=== PATIENT | female | born 1940 | race Caucasian/White ===

== ENCOUNTER 2017-04-11 08:00 | Outpatient (CLI) | payer MEDICARE, OTHER | END 2017-04-11 08:01 | disposition home or self-care (01) | LOC: LAB.WCP 08:00 | PROVIDERS: ATTEND Family Medicine | DX: N39.0 Urinary tract infection, site not specified (principal) | CPT/HCPCS: 87077; 87086 ==

== ENCOUNTER 2018-02-10 10:09 | Emergency (ER) | payer MEDICARE, OTHER ==
[2018-02-10] MEDS ORDERED: DEXAMETHASONE 10 MG/ML VIAL PO STA (10:49)
--- NOTE | 2018-02-10 11:37 | ED Physician Documentation ---
History of Present Illness - Stated complaint Stated Complaint: ARM PX - Chief complaint Chief Complaint: Ext Problem - Additonal information Additional information: hx from pt 77 f 25 years post surgery and hardware for elbow fx hardware long since removed 4 days of pain from elbow to fingertips with swelling to wrist and hand, most notable to anterior wrist pain is severe and radiates to her fingertips 2-4 no open wounds has a manicure but got it sat after the sx began no dental work surgery IV IM meds drugs etc no new injury Review of Systems Constitutional: denies: Fever Cardiac: denies: Chest pain / pressure Respiratory: denies: Dyspnea Musculoskeletal: reports: Extremity pain, Extremity swelling Endocrine: denies: Easy bruising / bleeding Immunocompromised: denies: Immunocompromised PD PAST MEDICAL HISTORY - Past Medical History Past Medical History: Yes Cardiovascular: Arrhythmia Respiratory: None Endocrine/Autoimmune: None GI: None : None Psych: None Musculoskeletal: Osteoarthritis Derm: None - Past Surgical History Past Surgical History: Yes General: Colonoscopy Ortho: Hip replacement - Present Medications Home Medications: Ambulatory Orders Medication Instructions Recorded Confirmed Metoprolol Succinate 12.5 mg PO DAILY 12/31/12 02/10/18 Aspirin 81 mg PO DAILY 01/01/13 02/10/18 Atorvastatin [Lipitor] 10 mg PO DAILY 02/10/18 02/10/18 Indomethacin [Indocin] 25 mg PO TIDWM PRN #30 capsule 02/10/18 - Allergies Allergies/Adverse Reactions: Allergies Allergy/AdvReac Type Severity Reaction Status Date / Time oxycodone HCl * Allergy Severe Rash Verified 12/04/13 20:21 [From OxyContin] morphine AdvReac Intermediate Emesis Verified 12/04/13 20:21 - Social History Does the pt smoke?: No Smoking Status: Never smoker Does the pt have substance abuse?: No - Immunizations Immunizations are current?: Yes - POLST Patient has POLST: No PD ED PE NORMAL - Vitals Vital signs reviewed: Yes - Neck Neck: Supple, no meningeal sign - Cardiac Cardiac: RRR - Respiratory Respiratory: No respiratory distress, Clear bilaterally - Extremities Extremities: Other (RUE: shoulder full ROM, elbow full ROM s pain no erythema or warmth, mild swelling, FA mild swelling, wrist moderate swelling anterior, slight erythema, not warm, able to range s pain, hand quite swollen, able to move but limited by edema, 3rd PIP swollen and unable to extend but can flex, MSV intact, no open wounds, + cap refill radial and ulnar pulses ) - Neuro Neuro: No motor deficit, No sensory deficit Results - Vitals Vitals: Vital Signs - 24 hr 02/10/18 10:15 Heart Rate 69 Respiratory 14 Rate Blood Pressure 159/77 H O2 Saturation 100 Oxygen O2 Source Room air - Rads (name of study) elbow Radiology: See rad report (neg) wrist Radiology: See rad report (seg degen changes and ST calcification) venous duplex Radiology: See rad report (no DVT, anterior wrist fluid collection could be a ganglion cyst) PD MEDICAL DECISION MAKING - ED course ED course: pain in median nerve distribution, aggrevated by supinating and extending elbow, swelling primarily to volar wrist and hand, less so to FA and not really notable to upper arm, + pulses, no DVT on duplex, xrays show degen changes and ST calcifications in wrist etiology unclear but hx exam and work up have effectively ruled out septic joint and DVT does have some arthritic changes and a likely ganglion cyst to wrist, that could cause median nerve compression, but not sure why hand and PIP would be affected, gout is another possibility amparo and pt relates pain is at times very severe will provide splint for comfort NSAID and refer to ortho - Sepsis Event Vital Signs: Vital Signs - 24 hr 02/10/18 10:15 Heart Rate 69 Respiratory 14 Rate Blood Pressure 159/77 H O2 Saturation 100 Oxygen O2 Source Room air Departure - Departure Disposition: 01 Home, Self Care Clinical Impression: Right wrist effusion Condition: Good Follow-Up: Velasquez Marshall MD [Primary Care Provider] - [facility] [Provider Group] Prescriptions: Indomethacin [Indocin] 25 mg PO TIDWM PRN #30 capsule PRN Reason: Pain Comments: The xray of the elbow is fine The wrist xray shows degenerative changes and calcifications in the soft tissues The ultrasound does not show a blood clot but does show a fluid collection off the wrist joint suggesting an outpouching of the joint capsule called a ganglion cyst The inflammation and fluid collection are likely inflammatory The exam does not suggest an infection The calcifications and swollen finger joint suggest you could have gout and should follow up with your PMD and/or orthopedics for more definitive testing But for today you can go home with a brace to support your wrist, indocin to decrease inflammation (especially good for gout) as well as a stronger narcotic medication called vicodin that you should only take if the pain is very very severe and not relieved with the indocin and ice and the splint Forms: Activity restrictions Discharge Date/Time: 02/10/18 14:09
--- NOTE | 2018-02-10 11:47 | XRAY Report ---
Reason: wrsit pain swell Procedure Date: 02/10/2018 Accession Number: [id number] / [id number] Procedure: XR - Wrist 4 View RT CPT Code: FULL RESULT: EXAM: RIGHT WRIST RADIOGRAPHY EXAM DATE: 02/10/2018 11:07 AM. CLINICAL HISTORY: Wrist pain and swelling. COMPARISON: None. TECHNIQUE: 4 views. FINDINGS: Bones are qualitatively osteopenic. There are degenerative changes within the carpal joints which are most pronounced in the triscaphe distribution. Advanced degenerative changes are also seen at the first carpometacarpal joint. Soft tissue calcifications are seen on the ulnar side of the wrist joint. No acute fracture or dislocation is identified. Joint space loss is also seen at the visualized metacarpophalangeal joints. IMPRESSION: Degenerative changes of the wrist as well as visualized metacarpophalangeal joints. RADIA
--- NOTE | 2018-02-10 11:48 | XRAY Report ---
Reason: elbow pain arm swelling Procedure Date: 02/10/2018 Accession Number: [id number] / [id number] Procedure: XR - Elbow 3 View RT CPT Code: FULL RESULT: EXAM: RIGHT ELBOW RADIOGRAPHY EXAM DATE: 02/10/2018 11:09 AM. CLINICAL HISTORY: Elbow pain arm swelling. COMPARISON: None. TECHNIQUE: 3 views. FINDINGS: No acute fracture or dislocation is identified. There is no significant joint effusion. Spur formation at the olecranon is noted with soft tissue thickening, likely chronic finding. IMPRESSION: No acute fracture or dislocation. RADIA
[2018-02-10 12:57] VITALS: BP 154/82
--- NOTE | 2018-02-10 13:06 | Ultrasound Report ---
Reason: R arm swelling Procedure Date: 02/10/2018 Accession Number: [id number] / [id number] Procedure: US - Duplex Ext Veins Right CPT Code: FULL RESULT: EXAM: RIGHT LOWER EXTREMITY VENOUS ULTRASOUND EXAM DATE: 02/10/2018 12:45 PM. CLINICAL HISTORY: R arm swelling and pain. COMPARISON: None. TECHNIQUE: Real-time sonographic vascular imaging was performed by the party plan salesperson through the lower extremity utilizing both color-flow and Doppler spectral analysis. Multiple sales representative canvas products static images were saved for review. FINDINGS: Common Femoral Vein (CFV): Normal. CFV-GSV Junction: Normal. Profunda Femoral Vein (PFV): Normal. Femoral Vein (FV) Prox: Normal. Femoral Vein (FV) Mid: Normal. Femoral Vein (FV) Dist: Normal. Popliteal Vein: Normal. Posterior Tibial Veins: Normal. Peroneal Veins: Normal. Contralateral Side CFV: Normal. Other: 3.1 x 2.3 x 1.0 cm anterior right wrist fluid collection associated with flexor tendons. IMPRESSION: 1. No evidence for deep venous thrombosis. 2. 3.1 x 2.3 x 1.0 cm fluid collection at the anterior wrist associated with flexor tendons which may reflect a ganglion. MRI could be used to further assess as clinically indicated. RADIA
== END 2018-02-10 14:09 | disposition home or self-care (01) ==
LOC: ED 10:09
DX: M25.431 Effusion, right wrist (principal); Z98.890 Other specified postprocedural states; Z79.82 Long term (current) use of aspirin; Z96.649 Presence of unspecified artificial hip joint
CPT/HCPCS: 99283

== ENCOUNTER 2018-03-03 09:22 | Outpatient (CLI) | payer MEDICARE, OTHER ==
[2018-03-03 12:32] LABS: BASOPHILS # (AUTO) 0.1 10^3/uL (0.0-0.1); BASOPHILS % (AUTO) 2.1 %; EOSINOPHILS # (AUTO) 0.2 10^3/uL (0.0-0.7); EOSINOPHILS % (AUTO) 5.8 %; HGB - HEMOGLOBIN 12.3 g/dL (12.0-16.0); LYMPHOCYTES # (AUTO) 1.1 10^3/uL (1.5-3.5); LYMPHOCYTES % (AUTO) 25.7 %; MEAN CORPUSCULAR HEMOGLOBIN 30.3 pg (27.0-31.0); MEAN CORPUSCULAR HGB CONC 34.2 g/dL (32.0-36.0); MEAN CORPUSCULAR VOLUME 88.7 fL (81.0-99.0); MEAN PLATELET VOLUME 8.3 fL (7.9-10.8); MONOCYTES # (AUTO) 0.4 10^3/uL (0.0-1.0); MONOCYTES % (AUTO) 9.4 %; NEUTROPHILS # (AUTO) 2.4 10^3/uL (1.5-6.6); PLT - PLATELET COUNT 349 10^3/uL (130-450); RED BLOOD COUNT 4.07 10^6/uL (4.20-5.40); RED CELL DISTRIBUTION WIDTH 13.3 % (12.0-15.0); WHITE BLOOD COUNT 4.3 x10^3/uL (4.8-10.8)
[2018-03-03 12:40] LABS: ALBUMIN 3.6 g/dL (3.2-5.5); ALBUMIN/GLOBULIN RATIO 1.2 (1.0-2.2); ALKALINE PHOSPHATASE 85 IU/L (42-121); ALT ALANINE AMINOTRANSFERASE 15 IU/L (10-60); AST ASPARTATE AMINOTRANSFERASE 19 IU/L (10-42); BILIRUBIN,TOTAL 1.1 mg/dL (0.2-1.0); BUN - BLOOD UREA NITROGEN 17 mg/dL (6-20); CALCIUM 9.1 mg/dL (8.5-10.3); CARBON DIOXIDE - CO2 26 mmol/L (21-32); CHLORIDE 103 mmol/L (101-111); CHOL/HDL RATIO 2.2 (<4.4); CHOLESTEROL 166 mg/dL; CREATININE 0.6 mg/dL (0.4-1.0); GFR - MDRD 97 (>89); GLUCOSE 100 mg/dL (70-100); HDL CHOLESTEROL 77 mg/dL; LDL CHOLESTEROL,CALCULATED 77 mg/dL; SODIUM 137 mmol/L (135-145); TOTAL PROTEIN 6.7 g/dL (6.7-8.2); VLDL CHOLESTEROL 12 mg/dL
== END 2018-03-03 09:23 | disposition home or self-care (01) ==
LOC: LAB.WCP 09:22
PROVIDERS: ATTEND Family Medicine
DX: E78.5 Hyperlipidemia, unspecified (principal)
CPT/HCPCS: 36415; 80053; 80061; 83721; 84443; 85025

== ENCOUNTER 2018-03-13 16:36 | Outpatient (CLI) | payer MEDICARE, OTHER ==
[2018-03-13 18:59] LABS: BILIRUBIN,URINE NEGATIVE (NEGATIVE); GLUCOSE, URINE (UA) NEGATIVE (NEGATIVE); KETONES,URINE (UA) NEGATIVE (NEGATIVE); LEUKOCYTE ESTERASE, URINE TRACE (NEGATIVE); NITRITE,URINE NEGATIVE (NEGATIVE); OCCULT BLOOD,URINE TRACE-LYSE (NEGATIVE); PH,URINE 5.5 PH (5.0-7.5); PROTEIN,URINE NEGATIVE (NEGATIVE); UROBILINOGEN,URINE 0.2 (NORMAL) E.U./dL (NORMAL)
[2018-03-13 19:22] LABS: CLARITY,URINE CLEAR (CLEAR)
[2018-03-13 19:23] LABS: BACTERIA,URINE None Seen /HPF (None Seen); CRYSTALS,URINE >50 Calcium Oxalate /LPF; SQUAMOUS EPITHELIAL CELL,UR RARE Squamous (<= Few)
== END 2018-03-13 16:37 | disposition home or self-care (01) ==
LOC: LAB.R 16:36
PROVIDERS: ATTEND Family Medicine
DX: R30.0 Dysuria (principal)
CPT/HCPCS: 81001; 87086

== ENCOUNTER 2018-04-22 09:33 | Outpatient (CLI) | payer MEDICARE, OTHER ==
--- NOTE | 2018-04-23 08:59 | Mammography Report ---
Reason: SCREENING MAMMO Procedure Date: 04/22/2018 Accession Number: [id number] / [id number] Procedure: HUBER - Screening Mammo Impl w/Jd CPT Code: FULL RESULT: EXAM: Screening Mammo Impl w/Jd DATE: 04/22/2018 10:07 AM CLINICAL HISTORY: Screening. Family history breast cancer sister age 55 father age 68 greater than age unknown. Prior history of augmentation with revisions 6 and 4 years ago. TECHNIQUE: Bilateral CC and MLO views were obtained. COMPARISON: 03/11/2017 through 10/13/2010 FINDINGS: The breasts demonstrate scattered fibroglandular densities bilaterally. Right breast: There is a subpectoral silicone implant with smooth contour. There are stable focal areas of free silicone in the inferior medial breast and superior to the implant, consistent with prior implant rupture since revised. The presence of the implant limits mammography. No suspicious masses, calcifications or areas of distortion. Left breast: There is mild asymmetric nipple retraction which appears new. Patient also notes a history of nipple retraction on her history sheet. There is an intact subpectoral silicone implant with smooth margins. Presence of the implant limits sensitivity of mammography. There are no suspicious masses, calcifications or areas of distortion. IMPRESSION: Incomplete examination RECOMMENDATION: Additional views of left breast with ultrasound for new nipple retraction. BI-RADS CATEGORY 0: Incomplete examination STANDARD QUALIFYING STATEMENTS: 1. This examination was not reviewed with the aid of Computer-Aided Detection (CAD). 2. A negative or benign imaging report should not preclude biopsy if clinically suspicious findings are present. 3. Dense breasts may obscure an underlying neoplasm. 4. This examination was reviewed with the aid of 3D breast imaging (tomosynthesis).
== END 2018-04-22 09:34 | disposition home or self-care (01) ==
LOC: DI 09:33
DX: Z12.31 Encounter for screening mammogram for malignant neoplasm of breast (principal); Z80.3 Family history of malignant neoplasm of breast
CPT/HCPCS: 77063; 77067

== ENCOUNTER 2018-05-12 10:54 | Outpatient (CLI) | payer MEDICARE, OTHER ==
--- NOTE | 2018-05-14 11:08 | Mammography Report ---
Reason: ABN MAMMO Procedure Date: 05/12/2018 Accession Number: [id number] / [id number] Procedure: HUBER - Diag Special Views Dig LT CPT Code: FULL RESULT: EXAM: Diag Special Views Dig LT DATE: 05/12/2018 11:58 AM CLINICAL HISTORY: Diagnostic mammogram. Workup is of new mild asymmetric nipple retraction TECHNIQUE: Left CC, MLO and ML views are obtained in implant displaced and nondisplaced technique. COMPARISON: 04/22/2018 through 10/13/2010. Comparison to the focused left breast ultrasound dated 05/14/2018 is also made to render the interpretation and recommendations. FINDINGS: The left breast demonstrates scattered fibroglandular densities. Mild nipple retraction persists and is confirmed. No suspicious masses, calcifications or areas of distortion are identified. The breast implant is unchanged. IMPRESSION: Benign findings RECOMMENDATION: Recommend routine annual Screening mammography unless otherwise clinically indicated. BIRADS CATEGORY 2: Benign findings STANDARD QUALIFYING STATEMENTS: 1. This examination was not reviewed with the aid of Computer-Aided Detection (CAD). 2. A negative or benign imaging report should not delay biopsy if clinically suspicious findings are present. Consider surgical consultation if warrented. More than 5% of cancers are not identified by imaging. 3. Dense breasts may obscure an underlying neoplasm. 4. This examination was reviewed with the aid of 3D imaging (tomography).
== END 2018-05-12 10:55 | disposition home or self-care (01) ==
LOC: DI 10:54
PROVIDERS: ATTEND Family Medicine
DX: N64.53 Retraction of nipple (principal)

== ENCOUNTER 2018-05-14 08:11 | Outpatient (CLI) | payer MEDICARE, OTHER ==
--- NOTE | 2018-05-14 09:55 | Ultrasound Report ---
Reason: F/U TO ABN MAMMO, LT BR ASYMMETRIC NIPPLE RETRACTI Procedure Date: 05/14/2018 Accession Number: [id number] / [id number] Procedure: US - Breast Unilateral Limited CPT Code: FULL RESULT: EXAM: Breast Unilateral Limited DATE: 05/14/2018 9:00 AM CLINICAL HISTORY: Diagnostic ultrasound as a result of screening mammogram finding nipple retraction. COMPARISON: Screening mammogram 04/22/2018. TECHNIQUE: Focused breast ultrasound of the left breast in the retroareolar region was performed with limited color Doppler as needed. FINDINGS: Normal breast tissue and architecture with no suspicious mass or distortion is identified. The retracted nipple is seen on ultrasound with no asymmetry or tethering/interaction with the underlying retroareolar breast tissue. IMPRESSION: Benign findings. BI-RADS category: 2 Recommendation: Annual screening mammography unless otherwise clinically indicated. RADIA
== END 2018-05-14 08:12 | disposition home or self-care (01) ==
LOC: DI 08:11
PROVIDERS: ATTEND Family Medicine
DX: N64.53 Retraction of nipple (principal)
CPT/HCPCS: 76642

== ENCOUNTER 2018-07-07 13:18 | Outpatient (CLI) | payer MEDICARE, OTHER ==
[2018-07-07 19:53] LABS: CREATININE 1.2 mg/dL (0.4-1.0)
[2018-07-07 20:07] LABS: BASOPHILS # (AUTO) 0.1 10^3/uL (0.0-0.1); BASOPHILS % (AUTO) 1.2 %; CALCIUM 9.2 mg/dL (8.5-10.3); EOSINOPHILS # (AUTO) 0.1 10^3/uL (0.0-0.7); EOSINOPHILS % (AUTO) 2.8 %; HGB - HEMOGLOBIN 12.6 g/dL (12.0-16.0); LYMPHOCYTES # (AUTO) 1.2 10^3/uL (1.5-3.5); LYMPHOCYTES % (AUTO) 22.5 %; MEAN CORPUSCULAR HEMOGLOBIN 29.1 pg (27.0-31.0); MEAN CORPUSCULAR VOLUME 88.1 fL (81.0-99.0); MEAN PLATELET VOLUME 8.7 fL (7.9-10.8); MONOCYTES # (AUTO) 0.4 10^3/uL (0.0-1.0); MONOCYTES % (AUTO) 6.8 %; NEUTROPHILS # (AUTO) 3.5 10^3/uL (1.5-6.6); NEUTROPHILS % (AUTO) 66.7 %; PLT - PLATELET COUNT 285 10^3/uL (130-450); RED BLOOD COUNT 4.33 10^6/uL (4.20-5.40); RED CELL DISTRIBUTION WIDTH 14.4 % (12.0-15.0); WHITE BLOOD COUNT 5.2 x10^3/uL (4.8-10.8)
== END 2018-07-07 23:59 | disposition home or self-care (01) ==
LOC: LAB.N 13:18
PROVIDERS: ATTEND Internal Medicine Cardiovascular Disease
DX: R94.39 Abnormal result of other cardiovascular function study (principal)
CPT/HCPCS: 36415; 80048; 85025

== ENCOUNTER 2019-03-06 08:00 | Outpatient (CLI) | payer MEDICARE, OTHER ==
[2019-03-06 20:20] LABS: CALCIUM 9.6 mg/dL (8.5-10.3); CREATININE 0.8 mg/dL (0.4-1.0)
== END 2019-03-06 23:59 | disposition home or self-care (01) ==
LOC: LAB.WCP 08:00
PROVIDERS: ATTEND Internal Medicine Cardiovascular Disease
DX: I10 Essential (primary) hypertension (principal); R00.2 Palpitations
CPT/HCPCS: 36415; 80048

== ENCOUNTER 2019-10-26 11:28 | Emergency (ER) | payer MEDICARE, OTHER ==
--- NOTE | 2019-10-26 13:33 | ED Physician Documentation ---
PD HPI SKIN - Stated complaint Stated Complaint: HEAD PAIN - Chief complaint Chief Complaint: General - History obtained from History obtained from: Patient - History of Present Illness Timing - onset: How many days ago (10) Timing - duration: Days (10) Timing - details: Abrupt onset, Still present Location: Scalp, Other (no noted injury to the area. Onset after being outside, but not aware of bite per se.) Quality / character: Painful (mildly tender), Raised. No: Draining Associated symptoms: No: Fever, Myalgias Contributing factors: No: Insect bite /sting (she noted it at first when outdoors in yard, but not aware of injury nor insect bite. Onset of the swelling seemed quick the first day, and has just persisted through now. No drainage. Mild redness.), Recent illness Similar symptoms before: Has not had sx before Review of Systems Constitutional: reports: Myalgias. denies: Fever, Chills Nose: denies: Rhinorrhea / runny nose, Congestion Throat: denies: Sore throat Respiratory: denies: Cough GI: denies: Nausea, Vomiting, Diarrhea Neurologic: denies: Near syncope, Confused, Altered mental status, Headache PD PAST MEDICAL HISTORY - Past Medical History Cardiovascular: Arrhythmia Respiratory: None Endocrine/Autoimmune: None GI: None : None Psych: None Musculoskeletal: Osteoarthritis Derm: None - Past Surgical History Past Surgical History: Yes General: Colonoscopy Ortho: Hip replacement - Present Medications Home Medications: Ambulatory Orders Medication Instructions Recorded Confirmed Metoprolol Succinate 12.5 mg PO DAILY 12/31/12 02/10/18 Aspirin 81 mg PO DAILY 01/01/13 02/10/18 Atorvastatin [Lipitor] 10 mg PO DAILY 02/10/18 02/10/18 Indomethacin [Indocin] 25 mg PO TIDWM PRN #30 capsule 02/10/18 Doxycycline Monohydrate 100 mg PO BID #14 tablet 10/26/19 - Allergies Allergies/Adverse Reactions: Allergies Allergy/AdvReac Type Severity Reaction Status Date / Time oxycodone HCl * Allergy Severe Rash Verified 10/26/19 11:45 [From OxyContin] morphine AdvReac Intermediate Emesis Verified 10/26/19 11:45 - Social History Does the pt smoke?: No Smoking Status: Never smoker Does the pt have substance abuse?: No - Immunizations Immunizations are current?: Yes - POLST Patient has POLST: No PD ED PE NORMAL - Vitals Vital signs reviewed: Yes - General General: Alert and oriented X 3, No acute distress, Well developed/nourished - HEENT HEENT: PERRL, Moist mucous membranes, Pharynx benign, Other (left upper occipital scalp with local area about 3 cm diameter of fluctuance, minimally tender, mild redness at center of it. No skin osres noted. ) - Neck Neck: Supple, no meningeal sign, No adenopathy Results - Vitals Vitals: Vital Signs - 24 hr 10/26/19 10/26/19 11:40 14:01 Temperature 36.7 C 36.6 C Heart Rate 74 82 Respiratory 20 16 Rate Blood Pressure 141/94 H 153/76 H O2 Saturation 98 98 Oxygen O2 Source Room air Procedures - Abscess I&D (location) left occipital scalp Preparation: Lidocaine 1%, With epi Incision: Incised with scalpel, Loculations broken (no purulence. I did get out small dark clots without FB nor signs of purulence. The area did flatten after evacuation of the hematoma.). No: Purulent drainage Other: Pt tolerated well PD MEDICAL DECISION MAKING - ED course Complexity details: re-evaluated patient (not clear the cause of the hematoma. She denies injury. No signs of infection per se, more c/w hematoma and mild local inflammation. ) Departure - Departure Disposition: 01 Home, Self Care Clinical Impression: Scalp hematoma Qualifiers: Encounter type: initial encounter Qualified Code(s): S00.03XA - Contusion of scalp, initial encounter Condition: Stable Record reviewed to determine appropriate education?: Yes Instructions: ED Hematoma Prescriptions: Doxycycline Monohydrate 100 mg PO BID #14 tablet Comments: There was no signs of purulence from the site. It only had clotted blood and little bit of bloody clear fluid consistent with a hematoma. Unclear why the initial development of that. Could have been a bug bite or similar. It is okay to wash and shower. Warm moist towels to the area periodically to help the residual of the hematoma clot to soften come out through the incision hole. If you were to develop signs of infection to include redness purulent drainage or surrounding swelling, then start the doxycycline antibiotic but otherwise I do not see need for an antibiotic at this point. The incision hole should heal up on its own after several days to week. Discharge Date/Time: 10/26/19 15:02
[2019-10-26 14:02] VITALS: BP 153/76
[2019-10-26] MEDS ORDERED: LIDOCAINE 1%-EPI 1:100000 20 ML MDV SUBQ STA (14:12)
== END 2019-10-26 15:02 | disposition home or self-care (01) ==
LOC: ED 11:28
DX: S00.03XA Contusion of scalp, initial encounter (principal); X58.XXXA Exposure to other specified factors, initial encounter; Z79.82 Long term (current) use of aspirin
CPT/HCPCS: 10060; 10140

== ENCOUNTER 2019-11-02 13:08 | Outpatient (CLI) | payer MEDICARE, OTHER ==
--- NOTE | 2019-11-03 08:26 | Mammography Report ---
BILATERAL DIGITAL SCREENING MAMMOGRAM 3D/2D WITH AUGMENTATION: 11/02/2019 CLINICAL: Routine screening. Comparison is made to exams dated: 05/14/2018 mammogram, 05/12/2018 mammogram, 04/22/2018 mammogram, and 03/11/2017 mammogram - [facility]. There are scattered fibroglandular elements in both breasts. There are benign calcifications in the right breast. No significant masses, calcifications, or other findings are seen in either breast. There has been no significant interval change. IMPRESSION: There is no mammographic evidence of malignancy. A 1 year screening mammogram is recommended. This exam was interpreted at Station ID: [id number]. NOTE: For mammograms, a report in lay terms will be sent to the patient. Approximately 15% of breast malignancies will not be visualized mammographically. In the management of a palpable breast mass, a negative mammogram must not discourage biopsy of a clinically suspicious lesion. Electronically Signed By: Robert Gu M.D. [email or web address]:11/02/2019 16:30:19 ACR BI-RADS Category 2: Benign Finding(s) 3342F PARENCHYMAL PATTERN: (A) - The breast(s) demonstrate(s) scattered fibroglandular densities. BI-RADS CATEGORY: (2) - 2 RECOMMENDATION: (ANNUAL) - Recommend routine annual screening mammography. [id number] 1 year screening LATERALITY: (B)
== END 2019-11-02 13:09 | disposition home or self-care (01) ==
LOC: DI 13:08
DX: Z12.31 Encounter for screening mammogram for malignant neoplasm of breast (principal)
CPT/HCPCS: 77063; 77067

== ENCOUNTER 2020-04-01 10:49 | Outpatient (CLI) | payer MEDICARE, OTHER ==
--- NOTE | 2020-04-01 11:37 | DEXA Report ---
PROCEDURE: Dexa Spine and/or Hip INDICATIONS: OSTEOPENIA TECHNIQUE: Dual energy x-ray absorptiometry (DXA) was performed on a [employer] System. Regions measur ed are the AP Spine, and forearm. COMPARISON: None. FINDINGS: Lumbar Spine: Bone Mineral Density 1.517 g/cm/cm,T score 2.8. Left forearm: Bone Mineral Density 0.618 g/cm/cm, T score -2.9. (T score greater or equal to -1.0: NORMAL) (T score from -1.1 to -2.4: OSTEOPENIA) (T score less than or equal to -2.5 to: OSTEOPOROSIS) Impression: Osteoporosis. Patients with diagnosis of osteoporosis or osteopenia should have regular bone mineral density assess ment. For those eligible for Medicare, routine testing is allowed once every 2 years. Testing frequ ency can be increased for patients who have rapidly progressing disease or for those who are receivin g medical therapy to restore bone mass. Reviewed by: Ashu Shaw MD on 04/01/2020 11:36 AM PST Approved by: Ashu Shaw MD on 04/01/2020 11:36 AM PST Station ID: [id number]
== END 2020-04-01 10:50 | disposition home or self-care (01) ==
LOC: DI 10:49
PROVIDERS: ATTEND Internal Medicine
DX: M81.0 Age-related osteoporosis without current pathological fracture (principal)
CPT/HCPCS: 77080; 77081

== ENCOUNTER 2020-06-09 13:14 | Emergency (ER) | payer MEDICARE, OTHER ==
[2020-06-09] MEDS ORDERED: METOPROLOL 5 MG/5 ML VIAL IVP STA (13:43)
[2020-06-09] MEDS ORDERED: MAGNESIUM SULFATE 2 GRAM 2 GM/50 ML BAG IV ONE (13:43)
--- NOTE | 2020-06-09 13:49 | ED Physician Documentation ---
PD HPI CHEST PAIN - Stated complaint Stated Complaint: ELEVATED HEARTRATE - Chief complaint Chief Complaint: Cardiac - History obtained from History obtained from: Patient - Additional information Additional information: She is a history of irregular heartbeat but no specific history of atrial fibrillation. She is maintained on 25 mg of metoprolol for same. This morning she noted some discomfort in her chest that was quite mild and noticed on her Fitbit that her heart rate was 110-120, usually running around 70 was 70 yesterday. She went for a hike yesterday without exercise intolerance. Review of Systems Ten Systems: 10 systems reviewed and negative Constitutional: denies: Fever, Chills, Fatigue Cardiac: denies: Chest pain / pressure, Palpitations Respiratory: reports: Dyspnea (mild). denies: Cough PD PAST MEDICAL HISTORY - Past Medical History Cardiovascular: Arrhythmia Respiratory: None Endocrine/Autoimmune: None GI: None : None Psych: None Musculoskeletal: Osteoarthritis Derm: None - Past Surgical History Past Surgical History: Yes General: Colonoscopy Ortho: Hip replacement - Present Medications Home Medications: Ambulatory Orders Medication Instructions Recorded Confirmed Metoprolol Succinate 12.5 mg PO DAILY 12/31/12 02/10/18 Aspirin 81 mg PO DAILY 01/01/13 02/10/18 Atorvastatin [Lipitor] 10 mg PO DAILY 02/10/18 02/10/18 Indomethacin [Indocin] 25 mg PO TIDWM PRN #30 capsule 02/10/18 Doxycycline Monohydrate 100 mg PO BID #14 tablet 10/26/19 - Allergies Allergies/Adverse Reactions: Allergies Allergy/AdvReac Type Severity Reaction Status Date / Time oxycodone HCl * Allergy Severe Rash Verified 06/09/20 13:44 [From OxyContin] morphine AdvReac Intermediate Emesis Verified 06/09/20 13:44 - Social History Does the pt smoke?: No Smoking Status: Never smoker Does the pt have substance abuse?: No - Immunizations Immunizations are current?: Yes - POLST Patient has POLST: No PD ED PE NORMAL - Vitals Vital signs reviewed: Yes - General General: Alert and oriented X 3, No acute distress - HEENT HEENT: PERRL, EOMI - Neck Neck: Supple, no meningeal sign, No bony TTP - Cardiac Cardiac: Other (Irregularly irregular without murmur) - Respiratory Respiratory: No respiratory distress, Clear bilaterally - Abdomen Abdomen: Non tender - Back Back: No CVA TTP, No spinal TTP - Derm Derm: Normal color, Warm and dry - Extremities Extremities: No edema, No calf tenderness / cord - Neuro Neuro: Alert and oriented X 3, Normal speech Results - Vitals Vitals: Vital Signs - 24 hr 06/09/20 06/09/20 06/09/20 13:16 14:02 14:17 Temperature 36.7 C Heart Rate 126 H 112 H 90 Respiratory 16 16 18 Rate Blood Pressure 157/115 H 152/97 H 118/63 O2 Saturation 100 96 96 06/09/20 06/09/20 06/09/20 14:58 15:08 15:36 Temperature Heart Rate 92 60 63 Respiratory 18 15 21 Rate Blood Pressure 120/94 H 123/76 120/68 O2 Saturation 96 97 94 Oxygen O2 Source Room air - EKG (time done) 1321 Rate: Rate (enter#) (128) Rhythm: Atrial fibrillation [place]: Normal QRS: Normal Ischemia: Non specific changes. No: ST elevation c/w ischemia, ST depression Computer interpretation: Agree with computer 1515 Rate: Rate (enter#) (59) Rhythm: NSR [place]: Normal Intervals: Normal [place] Ischemia: Normal ST segments - Labs Labs: Laboratory Tests 06/09/20 06/09/20 06/09/20 13:40 13:40 13:40 WBC 4.3 L RBC 4.12 L Hgb 12.6 Hct 38.6 MCV 93.7 MCH 30.6 MCHC 32.6 RDW 12.9 Plt Count 269 MPV 9.9 Neut # (Auto) 2.6 Lymph # (Auto) 0.8 L [place] # (Auto) 0.7 Eos # (Auto) 0.1 Baso # (Auto) 0.1 Absolute Nucleated RBC 0.00 Nucleated RBC % 0.0 PT 12.3 INR 1.1 APTT 31.5 Sodium 141 Potassium 4.1 Chloride 104 Carbon Dioxide 24 Anion Gap 13.0 BUN 23 H Creatinine 0.9 Estimated GFR (MDRD) 60 L Glucose 111 H Calcium 9.4 Total Bilirubin 1.1 H AST 31 ALT 56 Alkaline Phosphatase 158 H Troponin I High Sens Total Protein 6.8 Albumin 4.2 Globulin 2.6 Albumin/Globulin Ratio 1.6 Lipase 34 TSH 06/09/20 06/09/20 13:40 13:40 WBC RBC Hgb Hct MCV MCH MCHC RDW Plt Count MPV Neut # (Auto) Lymph # (Auto) [place] # (Auto) Eos # (Auto) Baso # (Auto) Absolute Nucleated RBC Nucleated RBC % PT INR APTT Sodium Potassium Chloride Carbon Dioxide Anion Gap BUN Creatinine Estimated GFR (MDRD) Glucose Calcium Total Bilirubin AST ALT Alkaline Phosphatase Troponin I High Sens 6.1 Total Protein Albumin Globulin Albumin/Globulin Ratio Lipase TSH 1.27 PD MEDICAL DECISION MAKING - ED course ED course: 79-year-old woman with new onset A. fib. By history she is pretty confident that it just started this morning. This is her first episode. Rate was controlled with IV metoprolol and then was placed on a procainamide drip. Around 3:05 PM she converted after a pause. A repeat EKG was done and she was observed for a time and was without symptoms. Departure - Departure Disposition: 01 Home, Self Care Clinical Impression: Atrial fibrillation Qualifiers: Atrial fibrillation type: paroxysmal Qualified Code(s): I48.0 - Paroxysmal atrial fibrillation Condition: Good Record reviewed to determine appropriate education?: Yes Instructions: Atrial Fibrillation Dc Comments: Continue with current meds including aspirin and metoprolol. Followup with Dr Burns, return if worse. NOTE TO HIM: PLEASE COPY RECORDS TO DR Ney Burns [facility] [address] [place] [address] [place] [address] Discharge Date/Time: 06/09/20 16:07
--- NOTE | 2020-06-09 14:03 | XRAY Report ---
PROCEDURE: Chest 1 View X-Ray INDICATIONS: Chest Pain TECHNIQUE: One view of the chest was acquired. COMPARISON: None FINDINGS: Surgical changes and devices: None. Lungs and pleura: No pleural effusions or pneumothorax. Lungs are clear. Mediastinum: Mediastinal contours appear normal. Heart size is normal. Bones and chest wall: No suspicious bony lesions. Overlying soft tissues appear unremarkable. IMPRESSION: No acute cardiopulmonary pathology. Reviewed by: Ashu Shaw MD on 06/09/2020 1:02 PM [facility] Approved by: Ashu Shaw MD on 06/09/2020 1:02 PM [facility] Station ID: [id number]
[2020-06-09] MEDS ORDERED: PROCAINAMIDE 1,000 MG in SODIUM CHLORIDE 0.9% 240 ML IV STA (14:06)
[2020-06-09 14:22] LABS: BASOPHILS # (AUTO) 0.1 10^3/uL (0.0-0.1); BASOPHILS % (AUTO) 1.2 %; EOSINOPHILS # (AUTO) 0.1 10^3/uL (0.0-0.7); EOSINOPHILS % (AUTO) 3.2 %; HCT - HEMATOCRIT 38.6 % (37.0-47.0); HGB - HEMOGLOBIN 12.6 g/dL (12.0-16.0); LYMPHOCYTES # (AUTO) 0.8 10^3/uL (1.5-3.5); LYMPHOCYTES % (AUTO) 17.7 %; MEAN CORPUSCULAR HEMOGLOBIN 30.6 pg (27.0-31.0); MEAN CORPUSCULAR HGB CONC 32.6 g/dL (32.0-36.0); MEAN CORPUSCULAR VOLUME 93.7 fL (81.0-99.0); MEAN PLATELET VOLUME 9.9 fL (7.9-10.8); MONOCYTES # (AUTO) 0.7 10^3/uL (0.0-1.0); MONOCYTES % (AUTO) 16.8 %; NEUTROPHILS # (AUTO) 2.6 10^3/uL (1.5-6.6); NEUTROPHILS % (AUTO) 60.9 %; PLT - PLATELET COUNT 269 10^3/uL (130-450); RED BLOOD COUNT 4.12 10^6/uL (4.20-5.40); RED CELL DISTRIBUTION WIDTH 12.9 % (12.0-15.0); WHITE BLOOD COUNT 4.3 x10^3/uL (4.8-10.8)
[2020-06-09 14:24] LABS: INR 1.1 (0.8-1.2); PT - PROTHROMBIN TIME 12.3 secs (9.9-12.6)
[2020-06-09 14:31] LABS: PARTIAL THROMBOPLASTIN TIME 31.5 secs (24.9-33.3)
[2020-06-09 14:37] LABS: ALBUMIN 4.2 g/dL (3.2-5.5); ALBUMIN/GLOBULIN RATIO 1.6 (1.0-2.2); BILIRUBIN,TOTAL 1.1 mg/dL (0.2-1.0); CALCIUM 9.4 mg/dL (8.5-10.3); CREATININE 0.9 mg/dL (0.4-1.0); POTASSIUM 4.1 mmol/L (3.5-5.0); TOTAL PROTEIN 6.8 g/dL (6.7-8.2)
[2020-06-09 15:36] VITALS: BP 120/68
== END 2020-06-09 16:07 | disposition home or self-care (01) ==
LOC: ED 13:14
DX: I48.0 Paroxysmal atrial fibrillation (principal)
CPT/HCPCS: 71045; 80053; 83690; 84443; 84484; 85025; 85610; 85730; 93005; 96365; 96368; 96375; 99284; 99285; J2690

== ENCOUNTER 2020-06-11 15:21 | Emergency (ER) | payer MEDICARE, OTHER ==
[2020-06-11] MEDS ORDERED: MAGNESIUM SULFATE 2 GRAM 2 GM/50 ML BAG IV ONE (15:26)
[2020-06-11] MEDS ORDERED: METOPROLOL 5 MG/5 ML VIAL IVP STA (15:26)
--- NOTE | 2020-06-11 15:35 | ED Physician Documentation ---
PD HPI CHEST PAIN - Stated complaint Stated Complaint: FAST HEART RATE - Chief complaint Chief Complaint: Cardiac - History obtained from History obtained from: Patient - Additional information Additional information: 79-year-old woman who I saw 2 days ago for first onset of atrial fibrillation. She converted after some rate control with beta blockade and then procainamide drip. She feels like she went back into it early this morning with rapid heart rate, fluttering in her chest, some mild chest heaviness. She is still on metoprolol and aspirin. 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 Burns in [place], but the appointment is not until August. Review of Systems Ten Systems: 10 systems reviewed and negative Constitutional: denies: Fever, Chills, Fatigue Cardiac: denies: Chest pain / pressure, Pedal edema, Calf pain Respiratory: denies: Dyspnea, Cough PD PAST MEDICAL HISTORY - Past Medical History Cardiovascular: Arrhythmia Respiratory: None Endocrine/Autoimmune: None GI: None : None Psych: None Musculoskeletal: Osteoarthritis Derm: None - Past Surgical History Past Surgical History: Yes General: Colonoscopy Ortho: Hip replacement - Present Medications Home Medications: Ambulatory Orders Medication Instructions Recorded Confirmed Metoprolol Succinate 25 mg PO DAILY 12/31/12 06/11/20 Aspirin 81 mg PO DAILY 01/01/13 06/11/20 Alendronate [Fosamax] 70 mg PO Q7D 06/11/20 06/11/20 Amlodipine Besylate [Norvasc] 5 mg PO DAILY 06/11/20 06/11/20 Apixaban [Eliquis] 1 tab PO BID #60 06/11/20 Calcium Carbonate [Elemental 600 mg PO DAILY 06/11/20 06/11/20 Calcium] Ergocalciferol (Vitamin D2) 100 mcg PO DAILY 06/11/20 06/11/20 [Vitamin D2] Fluticasone Propionate 9.9 ml NS DAILY 06/11/20 06/11/20 Latanoprost/Pf [Latanoprost 0.005% 1 drops OP QPM 06/11/20 06/11/20 Eye Drop] Meloxicam [Mobic] 15 mg PO DAILY 06/11/20 06/11/20 Psyllium Husk [Fiber] 0.52 gm PO DAILY 06/11/20 06/11/20 Rosuvastatin Calcium [Crestor] 5 mg PO DAILY 06/11/20 06/11/20 Sotalol HCl [Betapace] 80 mg PO BID #60 06/11/20 - Allergies Allergies/Adverse Reactions: Allergies Allergy/AdvReac Type Severity Reaction Status Date / Time oxycodone HCl * Allergy Severe Rash Verified 06/11/20 15:33 [From OxyContin] morphine AdvReac Intermediate Emesis Verified 06/11/20 15:33 - Social History Does the pt smoke?: No Smoking Status: Never smoker Does the pt have substance abuse?: No - Immunizations Immunizations are current?: Yes - POLST Patient has POLST: No PD ED PE NORMAL - Vitals Vital signs reviewed: Yes - General General: Alert and oriented X 3, No acute distress - HEENT HEENT: PERRL, EOMI - Neck Neck: Supple, no meningeal sign, No bony TTP - Cardiac Cardiac: Other (Rapid and irregular without murmur) - Respiratory Respiratory: No respiratory distress, Clear bilaterally - Abdomen Abdomen: Non tender - Extremities Extremities: No edema, No calf tenderness / cord - Neuro Neuro: Alert and oriented X 3, Normal speech Results - Vitals Vitals: Vital Signs - 24 hr 06/11/20 06/11/20 06/11/20 15:28 15:35 15:43 Temperature 36.7 C Heart Rate 140 H 124 H 106 H Respiratory 18 20 15 Rate Blood Pressure 156/108 H 162/87 H 127/81 H O2 Saturation 98 98 96 06/11/20 06/11/20 06/11/20 15:49 15:51 16:03 Temperature Heart Rate 98 91 92 Respiratory 15 16 17 Rate Blood Pressure 119/65 109/82 H 118/87 H O2 Saturation 96 95 96 06/11/20 06/11/20 06/11/20 16:05 16:10 16:30 Temperature Heart Rate 93 92 97 Respiratory 20 17 14 Rate Blood Pressure 117/68 125/93 H 107/77 O2 Saturation 94 94 94 06/11/20 06/11/20 06/11/20 16:36 16:51 17:02 Temperature Heart Rate 101 H 67 64 Respiratory 17 15 17 Rate Blood Pressure 107/88 H 138/88 H 109/85 H O2 Saturation 94 97 96 06/11/20 06/11/20 06/11/20 17:10 17:23 17:36 Temperature Heart Rate 64 63 59 L Respiratory 18 15 17 Rate Blood Pressure 118/80 132/87 H 111/93 H O2 Saturation 99 95 96 Oxygen O2 Source Room air - EKG (time done) 1527 Rate: Rate (enter#) (129) Rhythm: Atrial fibrillation (w pvcs) [place]: Normal QRS: Normal Ischemia: Non specific changes (mild lat STD) Computer interpretation: Agree with computer 1655 Rate: Rate (enter#) (64) Rhythm: NSR [place]: Normal Intervals: Normal [place] QRS: LVH Ischemia: Non specific changes Computer interpretation: Agree with computer - Labs Labs: Laboratory Tests 06/11/20 15:35 Sodium 141 Potassium 4.0 Chloride 105 Carbon Dioxide 23 Anion Gap 13.0 BUN 28 H Creatinine 0.7 Estimated GFR (MDRD) 81 L Glucose 100 Calcium 9.4 Magnesium 2.1 PD MEDICAL DECISION MAKING - ED course ED course: 79-year-old woman presents with her second episode of rapid A. fib in 3 days. The one a few days ago was her first episode. A similar approach was undertaken, rate controlled with IV metoprolol and then given some IV magnesium and subsequently she converted with procainamide drip. Explored getting an echocardiogram today but at the time of her presentation the channel rebuilder had already left the building for the day. After conversion a call was placed to [facility] cardiology to discuss given the prolonged period of time it will be until she has adequate outpatient follow-up. I spoke with Dr. Vogt on-call for her cardiology group. He recommended that she stop aspirin and start Eliquis, stop metoprolol and start sotalol 80 mg twice a day, they will arrange for close follow-up with an EKG for QT check in 1 week. Also of other further testing. Departure - Departure Disposition: 01 Home, Self Care Clinical Impression: Atrial fibrillation Qualifiers: Atrial fibrillation type: paroxysmal Qualified Code(s): I48.0 - Paroxysmal atrial fibrillation Condition: Good Record reviewed to determine appropriate education?: Yes Instructions: Atrial Fibrillation Dc Prescriptions: Sotalol HCl [Betapace] 80 mg PO BID #60 Apixaban [Eliquis] 1 tab PO BID #60 Comments: You were seen today again for atrial fibrillation. We converted you with the same regimen. Subsequently I spoke with Dr. Vogt, on-call for Dr. Burns. He recommended that you stop aspirin, starting the Eliquis blood thinner. Also stop metoprolol, starting sotalol instead. They will reach out to you for follow-up this coming week, you will need to have a repeat EKG and other testing as well. Return if worse.
[2020-06-11 15:51] LABS: CALCIUM 9.4 mg/dL (8.5-10.3); CREATININE 0.7 mg/dL (0.4-1.0); MAGNESIUM 2.1 mg/dL (1.7-2.8)
[2020-06-11] MEDS ORDERED: PROCAINAMIDE 1,000 MG in SODIUM CHLORIDE 0.9% 240 ML IV STA ×2 (16:06→16:28)
[2020-06-11 17:46] VITALS: BP 151/83
== END 2020-06-11 17:55 | disposition home or self-care (01) ==
LOC: ED 15:21
DX: I48.0 Paroxysmal atrial fibrillation (principal)
CPT/HCPCS: 36415; 80048; 83735; 93005; 96365; 96368; 96375; 99285; J2690

== ENCOUNTER 2020-06-23 14:36 | Outpatient (CLI) | payer MEDICARE, OTHER | END 2020-06-23 14:37 | disposition home or self-care (01) | LOC: RT 14:36 | PROVIDERS: ATTEND Internal Medicine | DX: I48.91 Unspecified atrial fibrillation (principal) | CPT/HCPCS: 93005 ==

== ENCOUNTER 2020-12-01 10:28 | Outpatient (CLI) | payer MEDICARE, OTHER ==
--- NOTE | 2020-12-02 10:50 | Mammography Report ---
BILATERAL DIGITAL SCREENING MAMMOGRAM 3D/2D WITH AUGMENTATION: 12/01/2020 CLINICAL: Family history of breast cancer. Routine screening. Comparison is made to exams dated: 11/02/2019 mammogram, 05/14/2018 mammogram, 05/14/2018 ultrasound, 05/12 mammogram, 04/22/2018 mammogram, and 03/11/2017 mammogram - [facility]. There are scattered fibroglandular elements in both breasts. Bilateral breast implants are intact. There are benign calcifications in the right breast. No significant masses, calcifications, or other findings are seen in either breast. There has been no significant interval change. IMPRESSION: BENIGN There is no mammographic evidence of malignancy. A 1 year screening mammogram is recommended. This exam was interpreted at Station ID: [id number]. NOTE: For mammograms, a report in lay terms will be sent to the patient. Approximately 15% of breast malignancies will not be visualized mammographically. In the management of a palpable breast mass, a negative mammogram must not discourage biopsy of a clinically suspicious lesion. Electronically Signed By: Robert Gu M.D. ddp/penrad:12/01/2020 11:10:12 ACR BI-RADS Category 2: Benign Finding(s) 3342F PARENCHYMAL PATTERN: (A) - The breast(s) demonstrate(s) scattered fibroglandular densities. BI-RADS CATEGORY: (2) - 2 RECOMMENDATION: (ANNUAL) - Recommend routine annual screening mammography. [id number] 1 year screening LATERALITY: (B)
== END 2020-12-01 10:29 | disposition home or self-care (01) ==
LOC: DI.N 10:28
DX: Z12.31 Encounter for screening mammogram for malignant neoplasm of breast (principal); Z80.3 Family history of malignant neoplasm of breast

== ENCOUNTER 2022-01-14 16:37 | Emergency (ER) | payer MEDICARE, OTHER ==
--- NOTE | 2022-01-14 16:49 | ED Physician Documentation ---
PD HPI UPPER EXT INJURY - Stated complaint Stated Complaint: FALL,R HAND SWELLING - Chief complaint Chief Complaint: Trauma Ext - History obtained from History obtained from: Patient - History of Present Illness Location: Right, Wrist, Hand Type of injury: Fall Timing - onset: How many days ago (2) Timing - details: Abrupt onset, Still present (was not hurting as much after the injury but worsened pain and swelling today.) Worsened by: Moving, Palpating Associated symptoms: Swelling, Discolored (some bruising developing today.). No: Weakness, Numbness Contributing factors: Anticoagulated. No: Prior ortho surgery Similar symptoms before: Has not had sx before Recently seen: Not recently seen Review of Systems Skin: denies: Abrasion (s), Laceration (s) Neurologic: denies: Focal weakness, Numbness, Confused, Headache, Head injury PD PAST MEDICAL HISTORY - Past Medical History Cardiovascular: Arrhythmia Respiratory: None Endocrine/Autoimmune: None GI: None : None Psych: None Musculoskeletal: Osteoarthritis Derm: None - Past Surgical History Past Surgical History: Yes General: Colonoscopy Ortho: Hip replacement - Present Medications Home Medications: Ambulatory Orders Medication Instructions Recorded Confirmed Metoprolol Succinate 25 mg PO DAILY 12/31/12 06/11/20 Aspirin 81 mg PO DAILY 01/01/13 06/11/20 Alendronate [Fosamax] 70 mg PO Q7D 06/11/20 06/11/20 Amlodipine Besylate [Norvasc] 5 mg PO DAILY 06/11/20 06/11/20 Apixaban [Eliquis] 1 tab PO BID #60 06/11/20 Calcium Carbonate [Elemental 600 mg PO DAILY 06/11/20 06/11/20 Calcium] Ergocalciferol (Vitamin D2) 100 mcg PO DAILY 06/11/20 06/11/20 [Vitamin D2] Fluticasone Propionate 9.9 ml NS DAILY 06/11/20 06/11/20 Latanoprost/Pf [Latanoprost 0.005% 1 drops OP QPM 06/11/20 06/11/20 Eye Drop] Meloxicam [Mobic] 15 mg PO DAILY 06/11/20 06/11/20 Psyllium Husk [Fiber] 0.52 gm PO DAILY 06/11/20 06/11/20 Rosuvastatin Calcium [Crestor] 5 mg PO DAILY 06/11/20 06/11/20 Sotalol HCl [Betapace] 80 mg PO BID #60 06/11/20 - Allergies Allergies/Adverse Reactions: Allergies Allergy/AdvReac Type Severity Reaction Status Date / Time oxycodone HCl * Allergy Severe Rash Verified 01/14/22 16:48 [From OxyContin] morphine AdvReac Intermediate Emesis Verified 01/14/22 16:48 - Social History Does the pt smoke?: No Smoking Status: Never smoker Does the pt have substance abuse?: No - Immunizations Immunizations are current?: Yes - POLST Patient has POLST: No PD ED PE NORMAL - Vitals Vital signs reviewed: Yes - General General: Alert and oriented X 3, Well developed/nourished - Derm Derm: Normal color, Warm and dry - Extremities Extremities: Other (The right wrist has tenderness swelling and bruising noted dorsal and volar at the distal radius area. There is some edema in the fingers. She does have sensation color and capillary refill in the fingers. Good pulses at the radius and ulnar wrist.Diminished range of motion of the wrist.) - Neuro Neuro: Alert and oriented X 3, No motor deficit, No sensory deficit, Normal speech Results - Vitals Vitals: Vital Signs - 24 hr 01/14/22 16:43 Temperature 37.3 C Heart Rate 89 Respiratory 16 Rate Blood Pressure 166/73 H O2 Saturation 97 Oxygen O2 Source Room air - Rads (name of study) right wrist Radiology: EMP read contemporaneously (distal radius fracture, nonangulated. Ulnar styloid fx noted too.) Procedures - Splint (location) right wrist Splint applied by: Tech Type of splint: Fiberglass, Volar cock up Other: Patient tolerated well, No complications, Neurovascular intact, Sling provided PD MEDICAL DECISION MAKING - ED course Complexity details: reviewed results, considered differential, d/w patient Departure - Departure Disposition: 01 Home, Self Care Clinical Impression: Distal radius fracture, right Qualifiers: Encounter type: initial encounter Fracture type: closed Fracture morphology: Colles' Qualified Code(s): S52.531A - Colles' fracture of right radius, initial encounter for closed fracture Condition: Stable Record reviewed to determine appropriate education?: Yes Instructions: ED Fx Colles Wrist No Redu Requ Follow-Up: Orthopedic Care [Provider Group] Marci Souza MD [Primary Care Provider] - Comments: You do have a fracture of the wrist at the end of the radius and ulnar styloid. These are nondisplaced and I would anticipate he will okay in place without necessarily needing surgical repair. However we would want to ensure that its healing up well and get a specialist advice on it. Keep the splint in place and use the sling to help elevate and rest the wrist. Ice or cool towels periodically to help with swelling. Acetaminophen 650 mg 4 times daily regularly to help with pain. To that you could add hydrocodone/acetaminophen every 6 hours if needed for worse pain. There are 4 tablets in the starter packet that we gave you for this evening. Follow-up with orthopedics towards the end of this week or in about 1 week for reevaluation. At that point they can roman-ray it and make sure its healing in proper position and also switch you from the splint to a true cast once the swelling is down. Call the orthopedic office tomorrow for an appointment.
[2022-01-14] MEDS ORDERED: ACETAMINOPHEN 500 MG TABLET PO STA ×2 (16:56→16:59)
[2022-01-14] MEDS ORDERED: NAPROXEN 250 MG TABLET PO STA (16:57)
[2022-01-14] MEDS ORDERED: HYDROcod/ACET 5/325 Prepack 4 PO STA (17:44)
--- NOTE | 2022-01-14 17:54 | XRAY Report ---
PROCEDURE: Hand 3 View RT INDICATIONS: fell onto right hand/wrist few days ago, cont pain TECHNIQUE: 3 views of the hand acquired. COMPARISON: Right wrist radiographs 02/10/2018. FINDINGS: Bones: There is a minimally displaced fracture of the distal radius that is best seen on lateral view . Generalized osteopenia. Degenerative changes are seen at the first carpal metacarpal joint and the triscaphe joint as well as the first metacarpophalangeal and interphalangeal joint, the second distal interphalangeal joint, third proximal interphalangeal joint, and the third through fifth metacarpoph alangeal joints. Osteophytes are seen at the third and fourth metacarpal heads. No suspicious bony le sions. Soft tissues: Chondrocalcinosis. Mild soft tissue edema surrounding the wrist and hand. IMPRESSION: 1.Minimally displaced transverse fracture of the distal radius. 2.Multifocal degenerative changes throughout the hand as described above with a chronic osteophytes a t the first through third metacarpal heads. Chondrocalcinosis is also noted. Differential considerati ons primarily include CPPD and hemochromatosis. Reviewed by: Buzz Bateman MD on 01/14/2022 4:53 PM [facility] Approved by: Buzz Bateman MD on 01/14/2022 4:53 PM [facility] Station ID: [id number]
[2022-01-14 17:55] VITALS: BP 130/72
== END 2022-01-14 17:53 | disposition home or self-care (01) ==
LOC: ED 16:37
DX: S52.531A Colles' fracture of right radius, initial encounter for closed fracture (principal); W01.0XXA Fall on same level from slipping, tripping and stumbling without subsequent striking against object, initial encounter
CPT/HCPCS: 29125; 73130; 99282; 99283; A9270

== ENCOUNTER 2022-03-19 11:17 | Outpatient (CLI) | payer MEDICARE, OTHER ==
--- NOTE | 2022-03-19 12:09 | XRAY Report ---
PROCEDURE: Wrist 3 View RT INDICATIONS: RIGHT WRIST FRACTURE TECHNIQUE: 3 views of the wrist were acquired. COMPARISON: 02/08/2022 FINDINGS: Bones: There is interval further healing at distal radial shaft impacted fracture site with increased sclerosis. Wrist alignment is unchanged from prior study. No new fracture or dislocation. Osteoarthr itic changes are noted throughout wrist joints. There is diffuse osteopenia. No suspicious bony lesio ns. Scaphoid view: Scaphoid is grossly intact. Soft tissues: No suspicious soft tissue calcifications. IMPRESSION: Interval further healing at distal radial impacted fracture site with increased sclerosis. No new fra cture or dislocation. Osteoarthritis throughout right wrist joints. Diffuse osteopenia. Reviewed by: Ashu Shaw MD on 03/19/2022 12:07 PM PST Approved by: Ashu Shaw MD on 03/19/2022 12:07 PM PST Station ID: [id number]
== END 2022-03-19 11:18 | disposition home or self-care (01) ==
LOC: DI.WOS 11:17
PROVIDERS: ATTEND Orthopaedic Surgery
DX: S52.531D Colles' fracture of right radius, subsequent encounter for closed fracture with routine healing (principal); M19.031 Primary osteoarthritis, right wrist; M85.88 Other specified disorders of bone density and structure, other site

== ENCOUNTER 2022-04-20 12:10 | Outpatient (CLI) | payer MEDICARE, OTHER ==
--- NOTE | 2022-04-20 15:13 | DEXA Report ---
PROCEDURE: Dexa Spine and/or Hip INDICATIONS: OSTEOPOROSIS TECHNIQUE: Dual energy x-ray absorptiometry (DXA) was performed on a EZMove System. Regions measur ed are the AP Spine, femoral neck, and if needed forearm. COMPARISON: 04/01/2020. FINDINGS: Lumbar Spine: Bone Mineral Density 1.605 g/cm/cm,T score 3.5. There is interval 5.8% increase in total lumbar sp ine bone mineral density. Left forearm: Bone Mineral Density 0.599 g/cm/cm, T score -3.2. There is interval 3.1% decrease in left forearm bon e mineral density. (T score greater or equal to -1.0: NORMAL) (T score from -1.1 to -2.4: OSTEOPENIA) (T score less than or equal to -2.5 to: OSTEOPOROSIS) Impression: Osteoporosis. Patients with diagnosis of osteoporosis or osteopenia should have regular bone mineral density assess ment. For those eligible for Medicare, routine testing is allowed once every 2 years. Testing frequ ency can be increased for patients who have rapidly progressing disease or for those who are receivin g medical therapy to restore bone mass. Reviewed by: Ashu Shaw MD on 04/20/2022 3:12 PM PST Approved by: Ashu Shaw MD on 04/20/2022 3:12 PM PST Station ID: [id number]
== END 2022-04-20 12:11 | disposition home or self-care (01) ==
LOC: DI 12:10
PROVIDERS: ATTEND Internal Medicine
DX: M81.0 Age-related osteoporosis without current pathological fracture (principal)

== ENCOUNTER 2022-12-26 19:57 | Emergency (ER) | payer MEDICARE, OTHER ==
[2022-12-26] MEDS ORDERED: diltiaZEM INJ 5 MG/ML VIAL IVP PRN (20:26)
[2022-12-26 20:55] LABS: VBG PCO2 36.2 mmHg (41-51); VBG PH 7.394 (7.31-7.41)
[2022-12-26 20:56] LABS: BASOPHILS % (AUTO) 0.1 %; HCT - HEMATOCRIT 35.8 % (37.0-47.0); HGB - HEMOGLOBIN 11.6 g/dL (12.0-16.0); LYMPHOCYTES # (AUTO) 0.6 10^3/uL (1.5-3.5); MEAN CORPUSCULAR HEMOGLOBIN 29.8 pg (27.0-31.0); MEAN CORPUSCULAR HGB CONC 32.4 g/dL (32.0-36.0); MEAN PLATELET VOLUME 9.8 fL (7.9-10.8); MONOCYTES # (AUTO) 0.9 10^3/uL (0.0-1.0); MONOCYTES % (AUTO) 9.2 %; NEUTROPHILS # (AUTO) 8.3 10^3/uL (1.5-6.6); NEUTROPHILS % (AUTO) 84.4 %; PLT - PLATELET COUNT 286 10^3/uL (130-450); RED BLOOD COUNT 3.89 10^6/uL (4.20-5.40); RED CELL DISTRIBUTION WIDTH 13.2 % (12.0-15.0); VBG BASE EXCESS -2.7 mmol/L (-2 - +2); VBG HCO3 21.6 mmol/L (23-28); VBG PO2 35.7 mmHg (25-47); VBG TOTAL CO2 22.7 mmol/L (24-29); WHITE BLOOD COUNT 9.9 x10^3/uL (4.8-10.8)
[2022-12-26 20:57] LABS: VBG OXYGEN SATURATION 69.7 % (60-80)
[2022-12-26 21:03] LABS: INR 1.9 (0.8-1.2); PT - PROTHROMBIN TIME 20.1 secs (9.9-12.6)
[2022-12-26 21:12] LABS: ALBUMIN 3.9 g/dL (3.2-5.5); ALBUMIN/GLOBULIN RATIO 1.2 (1.0-2.2); BILIRUBIN,TOTAL 1.1 mg/dL (0.2-1.0); CALCIUM 9.3 mg/dL (8.5-10.3); CREATININE 0.7 mg/dL (0.4-1.0); MAGNESIUM 1.9 mg/dL (1.7-2.8); POTASSIUM 3.7 mmol/L (3.5-5.0); TOTAL PROTEIN 7.2 g/dL (6.7-8.2)
[2022-12-26] MEDS ORDERED: ONDANSETRON 4 MG/2 ML VIAL IVP STA (21:24)
[2022-12-26] MEDS ORDERED: PROPOFOL 200 MG/20 ML VIAL IVP STA (21:37)
[2022-12-26] MEDS ORDERED: fentaNYL 100 MCG/2 ML VIAL IVP STA (21:37)
[2022-12-26 23:01] VITALS: O2SAT 98
[2022-12-26 23:10] VITALS: BP 117/61
--- NOTE | 2022-12-26 23:48 | ED Physician Documentation ---
History of Present Illness - Stated complaint Stated Complaint: SOA - Chief complaint Chief Complaint: General - Additonal information Additional information: Patient 81-year-old female presenting to the emergency department with atrial fibrillation. Reports noted that she had gone back into atrial fibrillation earlier today. Is uncertain exactly when it started. Reports takes Xarelto although did discontinue this medication approximately 1 week ago in order to treat leg swelling. Started this medication again greater than 72 hours ago. Reports was treated earlier today at urgent care for neck spasm for which she has taken Robaxin and prednisone. At that time she reports that her heart rate was 102 however she is uncertain whether or not she was in A-fib at that time. Review of Systems Constitutional: denies: Fever Eyes: denies: Loss of vision Ears: denies: Loss of hearing Nose: denies: Rhinorrhea / runny nose Throat: denies: Dental pain / toothache Cardiac: denies: Chest pain / pressure Respiratory: denies: Dyspnea : denies: Dysuria Skin: denies: Rash Musculoskeletal: reports: Neck pain PD PAST MEDICAL HISTORY - Past Medical History Cardiovascular: Atrial fibrillation, Arrhythmia Respiratory: None Endocrine/Autoimmune: None GI: None : None Psych: None Musculoskeletal: Osteoarthritis Derm: None - Past Surgical History Past Surgical History: Yes General: Colonoscopy Ortho: Hip replacement - Present Medications Home Medications: Ambulatory Orders Medication Instructions Recorded Confirmed Aspirin 81 mg PO DAILY 01/01/13 06/11/20 Alendronate [Fosamax] 70 mg PO Q7D 06/11/20 12/14/22 Amlodipine Besylate [Norvasc] 5 mg PO DAILY 06/11/20 12/14/22 Calcium Carbonate [Elemental 600 mg PO DAILY 06/11/20 06/11/20 Calcium] Ergocalciferol (Vitamin D2) 100 mcg PO DAILY 06/11/20 06/11/20 [Vitamin D2] Fluticasone Propionate 9.9 ml NS DAILY 06/11/20 06/11/20 Latanoprost/Pf [Latanoprost 0.005% 1 drops OP QPM 06/11/20 06/11/20 Eye Drop] Meloxicam [Mobic] 15 mg PO DAILY 06/11/20 06/11/20 Psyllium Husk [Fiber] 0.52 gm PO DAILY 06/11/20 06/11/20 Rosuvastatin Calcium [Crestor] 5 mg PO DAILY 06/11/20 12/14/22 Sotalol HCl [Betapace] 80 mg PO BID #60 06/11/20 12/14/22 Rivaroxaban [Xarelto] 20 mg PO DAILY 12/14/22 12/14/22 - Allergies Allergies/Adverse Reactions: Allergies Allergy/AdvReac Type Severity Reaction Status Date / Time oxycodone HCl * Allergy Severe Rash Verified 12/26/22 20:13 [From OxyContin] morphine AdvReac Intermediate Emesis Verified 12/26/22 20:13 - Social History Does the pt smoke?: No Smoking Status: Never smoker Does the pt have substance abuse?: No - Immunizations Immunizations are current?: Yes - POLST Patient has POLST: No PD ED PE NORMAL - Vitals Vital signs reviewed: Yes (Tachycardic) - General General: Alert and oriented X 3, No acute distress - HEENT HEENT: Atraumatic, PERRL, EOMI, Ears normal, Pharynx benign - Neck Neck: Supple, no meningeal sign, No JVD - Cardiac Cardiac: No murmur, Other (Irregularly irregular) - Respiratory Respiratory: No respiratory distress - Abdomen Abdomen: Normal bowel sounds - Female Female : Deferred - Rectal Rectal: Deferred - Back Back: No CVA TTP Results - Vitals Vitals: Vital Signs - 24 hr 12/26/22 12/26/22 12/26/22 20:01 20:23 20:59 Temperature 36.1 C L Heart Rate 123 H 134 H 80 Respiratory 20 24 17 Rate Blood Pressure 111/70 123/90 H 120/75 O2 Saturation 96 92 96 If not protocol : Oxygen Flow, liters/minute 12/26/22 12/26/22 12/26/22 21:12 22:00 22:07 Temperature Heart Rate 93 105 H 67 Respiratory 17 17 17 Rate Blood Pressure 108/65 120/75 120/81 H O2 Saturation 98 98 100 If not protocol 4 : Oxygen Flow, liters/minute 12/26/22 12/26/22 12/26/22 22:13 22:19 22:25 Temperature Heart Rate 70 73 70 Respiratory 19 20 18 Rate Blood Pressure 101/61 120/72 107/61 O2 Saturation 100 96 96 If not protocol 2 : Oxygen Flow, liters/minute 12/26/22 12/26/22 12/26/22 22:43 22:55 23:07 Temperature Heart Rate 68 67 69 Respiratory 20 19 18 Rate Blood Pressure 109/60 113/62 117/61 O2 Saturation 100 98 98 If not protocol : Oxygen Flow, liters/minute Oxygen O2 Source Room air - EKG (time done) 2010 EKG releavant findings:: EKG personally interpreted by author of this note. Relevant findings are: Atrial fibrillation with rate 112 bpm. Normal axis. Normal QRS and QTc intervals. Premature ventricular complexes. Nonspecific ST-T wave abnormalities throughout. 2214 EKG releavant findings:: EKG personally interpreted by author of this note. Relevant findings are: Sinus rhythm with rate 60 bpm. Normal axis. Normal [place], QRS, QTc intervals. No ST segment elevations or T wave inversions. Nonspecific ST abnormalities noted. - Labs Labs: Laboratory Tests 12/26/22 12/26/22 12/26/22 20:44 20:44 20:44 WBC 9.9 RBC 3.89 L Hgb 11.6 L Hct 35.8 L MCV 92.0 MCH 29.8 MCHC 32.4 RDW 13.2 Plt Count 286 MPV 9.8 Neut # (Auto) 8.3 H Lymph # (Auto) 0.6 L [place] # (Auto) 0.9 Eos # (Auto) 0.0 Baso # (Auto) 0.0 Absolute Nucleated RBC 0.00 Nucleated RBC % 0.0 PT 20.1 H INR 1.9 H VBG pH VBG pCO2 VBG pO2 VBG HCO3 VBG Total CO2 VBG O2 Saturation VBG Base Excess Sodium 136 Potassium 3.7 Chloride 104 Carbon Dioxide 24 Anion Gap 8.0 BUN 19 Creatinine 0.7 Estimated GFR (MDRD) 80 L Glucose 160 H Lactic Acid Calcium 9.3 Magnesium 1.9 Total Bilirubin 1.1 H AST 15 ALT 19 Alkaline Phosphatase 70 Total Creatine Kinase 32 Total Protein 7.2 Albumin 3.9 Globulin 3.3 Albumin/Globulin Ratio 1.2 Lipase 31 12/26/22 12/26/22 20:44 20:44 WBC RBC Hgb Hct MCV MCH MCHC RDW Plt Count MPV Neut # (Auto) Lymph # (Auto) [place] # (Auto) Eos # (Auto) Baso # (Auto) Absolute Nucleated RBC Nucleated RBC % PT INR VBG pH 7.394 VBG pCO2 36.2 L VBG pO2 35.7 VBG HCO3 21.6 L VBG Total CO2 22.7 L VBG O2 Saturation 69.7 VBG Base Excess -2.7 L Sodium Potassium Chloride Carbon Dioxide Anion Gap BUN Creatinine Estimated GFR (MDRD) Glucose Lactic Acid 1.3 Calcium Magnesium Total Bilirubin AST ALT Alkaline Phosphatase Total Creatine Kinase Total Protein Albumin Globulin Albumin/Globulin Ratio Lipase Procedures - Procedural sedation Sedation prep: Informed consent, Time out completed, Last meal, PE performed, ASA 1 - healthy, IV O2 monitor, ET CO2 monitor, RT present Sedation Medications: propofol Mallampati classification: I Patient status during sedation: Drowsy Sedation recovery: Recovered uneventfully Time in sedation (Minutes): 10 - Cardioversion - Major Attempt 1 Indication: Tachyarrhythmia Risks, benefits, alternatives explained to: Pt Prep: IV, O2, teletypesetter monitor, Pulse ox, Airway equip Meds: Fentanyl CS via: Pads Sync: Biphasic, 200j Post cardioversion rhythm: NSR Performed by: ED MD PD Medical Decision Making - ED course Complexity details: reviewed old records, reviewed results, re-evaluated patient, considered differential, d/w patient ED course: Patient 81 female with known history of atrial fibrillation on Xarelto presenting with A-fib with RVR. Currently takes sotalol and amlodipine for rate control. Recently discontinued amlodipine however began this again 4 days ago. Labs obtained generally within normal limits or nonactionable. Initially given dose Cardizem with improved rate control but remained in atrial fibrillation. Discussed options including discharge on Cardizem for follow-up with cardiology versus elective cardioversion in the emergency department. Patient elected to undergo cardioversion in the emergency department and this was performed as outlined in procedure note above. On reevaluation patient found to be resting comfortably and in no acute distress. Remained in sinus rhythm for an appropriate period of monitoring after the procedure. At this time will discharge for follow-up with cardiology. Clear return precautions given. Departure - Departure Disposition: 01 Home, Self Care Clinical Impression: A-fib Qualifiers: Atrial fibrillation type: unspecified Qualified Code(s): I48.91 - Unspecified atrial fibrillation Instructions: Atrial Fibrillation Dc Comments: Thank you for allowing us to care for you today at [facility]. Today in the emergency department you were treated for atrial fibrillation. You underwent cardioversion. It appears that you are now in a sinus rhythm. Please continue all of your current medications. Please follow-up with your primary care doctor soon as possible. If anytime you have new or worsening symptoms please not hesitate to return. Forms: PCP List Discharge Date/Time: 12/26/22 23:07
== END 2022-12-26 23:07 | disposition home or self-care (01) ==
LOC: ED 19:57
DX: I48.91 Unspecified atrial fibrillation (principal)
CPT/HCPCS: 36415; 80053; 82550; 82803; 83605; 83690; 83735; 85025; 85610; 92960; 93005; 99152; 99284

== ENCOUNTER 2023-01-03 08:00 | Outpatient (CLI) | payer MEDICARE, OTHER ==
--- NOTE | 2023-01-03 16:14 | XRAY Report ---
PROCEDURE: Knee 4 View LT INDICATIONS: LEFT KNEE PAIN TECHNIQUE: 4 views of the left knee(s) were acquired. COMPARISON: None. FINDINGS: Bones: No fractures or dislocations. No suspicious bony lesions. Tricompartmental knee joint degene ration. Joint space narrowing with weightbearing, severe in the medial femorotibial compartment. Soft tissues: Small knee joint effusion. No suspicious soft tissue calcifications or masses. Prepat ellar soft tissue swelling. IMPRESSION: 1. Tricompartmental osteoarthritis. 2. Small knee joint effusion. Reviewed by: Blake Villalobos MD on 01/03/2023 4:12 PM PDT Approved by: Blake Villalobos MD on 01/03/2023 4:12 PM PDT Station ID: [id number]
== END 2023-01-03 23:59 | disposition home or self-care (01) ==
LOC: DI.WOS 08:00
PROVIDERS: ATTEND Physician Assistant Surgical
DX: M17.12 Unilateral primary osteoarthritis, left knee (principal); M25.462 Effusion, left knee